=== PATIENT | female | born 1930 | race Caucasian/White ===

== ENCOUNTER → 2016-09-06 | Outpatient (CLI) | payer MEDICARE ==
--- NOTE | 2016-09-06 20:16 | CR ---
EXAM DATE: 09/06/16 PATIENT'S AGE: 85 Patient: PEE HAYES Facility: [place], [place] Site . Site : 1930 Study: XRay Knee Bilateral [id number]/12/2017 9:30:07 AM Ordering Physician: Deion Castro Final Report: HISTORY: Knee pain. Technique: Four views of both knees. Comparison: No prior. Findings: On the right, there is severe narrowing of the lateral joint space compartment noted on the PA notch view. Marginal osteophyte formation about the lateral and patellofemoral compartments compatible with degenerative arthrosis. No acute fracture. No definite suprapatellar joint effusion. No chondrocalcinosis. - On the left, there is mild degenerative arthrosis of the knee. No significant joint space narrowing. No acute fracture or suprapatellar joint effusion. No chondrocalcinosis seen. Impression: 1. On the right, there is degenerative arthrosis of the knee with severe lateral joint space compartment narrowing. 2. On the left, there is mild degenerative arthrosis of the knee without significant joint space narrowing. Dictated by Clay Cintron MD @ Sep 06 2016 10:19AM (Electronic Signature) Report Signed by Proxy. ALTA
== END ==
LOC: MW.CHORTHO 07:55
PROVIDERS: ATTEND Physician Assistant
DX: M25.561 Pain in right knee (principal); M25.562 Pain in left knee; M17.11 Unilateral primary osteoarthritis, right knee; M17.12 Unilateral primary osteoarthritis, left knee; M17.0 Bilateral primary osteoarthritis of knee
CPT/HCPCS: 20610-50; 735642650; 73564-50; G0463; J1040

== ENCOUNTER 2016-12-28 22:08 | Observation (INO) | payer MEDICARE ==
[2016-12-28] MEDS ORDERED: Aspirin 81 MG Tab.Chew PO ONE (22:19)
[2016-12-28] MEDS ORDERED: Nitroglycerin 2% Oint 1 GM UD Packet TOP ONE (22:19)
--- NOTE | 2016-12-28 22:37 | EDM.PDOC ---
ED HPI GENERAL MEDICAL PROBLEM - General Chief Complaint: General Stated Complaint: PT LT ARM HURT Time Seen by Provider: 12/28/16 22:29 - History of Present Illness INITIAL COMMENTS - FREE TEXT/NARRATIVE: HISTORY AND PHYSICAL: History of present illness: Patient's 86-year-old white female presents with concern of left shoulder and neck pain she states she's had this relatively constantly for the last 2-3 weeks she has been seeing a physical therapist for this states it got worse tonight prompting her visit here she is explicitly has concern regarding possible cardiac etiology she denies any associated shortness of breath nausea vomiting palpitations or other concern she has her son here with her who expresses similar concern about the intensity of it tonight. Review of systems: As per history of present illness and below otherwise all systems reviewed and negative. Past medical history: As per history of present illness and as reviewed below otherwise noncontributory. Surgical history: As per history of present illness and as reviewed below otherwise noncontributory. Social history: No reported history of drug or alcohol abuse. Family history: As per history of present illness and as reviewed below otherwise noncontributory. Physical exam: HEENT: Atraumatic, normocephalic, pupils reactive, negative for conjunctival pallor or scleral icterus, mucous membranes moist, throat clear, neck supple, nontender, trachea midline. Lungs: Clear to auscultation, breath sounds equal bilaterally, chest nontender. Heart: S1S2, regular, negative for clicks, rubs, or JVD. Abdomen: Soft, nondistended, nontender. Negative for masses or hepatosplenomegaly. Negative for costovertebral tenderness. Pelvis: Stable nontender. Genitourinary: Deferred. Rectal: Deferred. Extremities: Atraumatic, negative for cords or calf pain. Neurovascular unremarkable. Left shoulder is no localized tenderness no crepitation or somewhat limited range of motion secondary to discomfort neck is without point of vertebral body tenderness is no cervical radicular findings Neuro: Awake, alert, oriented. Cranial nerves II through XII unremarkable. Cerebellum unremarkable. Motor and sensory unremarkable throughout. Exam nonfocal. Diagnostics: CBC CMP troponin PT/INR chest x-ray EKG Therapeutics: IV O2 monitor aspirin nitroglycerin paste Impression: #1 left shoulder/neck pain Definitive disposition and diagnosis as appropriate pending reevaluation and review of above. Left Shoulder Pain Score (Numeric/FACES): 10 - Related Data Allergies Allergy/AdvReac Type Severity Reaction Status Date / Time No Known Allergies Allergy Verified 12/28/16 22:19 Home Meds: Home Meds Aspirin [Ecotrin] 81 mg PO DAILY 01/11/14 [History] Omeprazole [priLOSEC OTC] 20 mg PO DAILY 01/11/14 [History] Calcium Carbonate/Vitamin D3 [Calcium 500 + Vit D 400] 1 each PO DAILY 01/19/14 [History] Cholecalciferol (Vitamin D3) [Vitamin D] 5,000 unit PO DAILY 01/19/14 [History] Cinnamon Bark [Cinnamon] 500 mg PO DAILY 01/19/14 [History] Estradiol [[place]-Dot] 1 each TD ASDIRECTED 01/19/14 [History] Gabapentin [Neurontin] 100 mg PO DAILY 01/19/14 [History] Metoprolol Succinate [Toprol XL] 25 mg PO DAILY 01/19/14 [History] Multivitamin with Minerals [Multivitamins with Minerals] 1 each PO DAILY [History] [place]-3/DHA/Epa/Fish Oil [[place]-3 Fish Oil Softgel] 1 each PO DAILY 01/19/14 [ History] Potassium 595 mg PO DAILY 01/19/14 [History] Social & Family History - Tobacco Use Smoking Status *Q: Never Smoker - Alcohol Use Days Per Week of Alcohol Use: 0 - Recreational Drug Use Recreational Drug Use: No ED ROS GENERAL - Review of Systems Review Of Systems: ROS reveals no pertinent complaints other than HPI. ED EXAM, GENERAL - Physical Exam Exam: See Below (See dictation) Course - Vital Signs Last Recorded V/S: Last Vital Signs Temp 36.6 C 12/28/16 22:09 Pulse 117 H 12/28/16 22:09 Resp 21 H 12/28/16 22:09 BP 202/99 H 12/28/16 22:09 Pulse Ox 97 12/28/16 22:09 - Orders/Labs/Meds Orders: Active Orders 24 hr Category Date Time Status EKG Documentation Completion [RC] STAT Care 12/28/16 22:18 Active Chest 1V Frontal [CR] Stat Exams 12/28/16 22:18 Ordered CBC WITH AUTO DIFF [HEME] Stat Lab 12/28/16 22:23 Received CKMB [CHEM] Stat Lab 12/28/16 22:23 Received COMPREHENSIVE METABOLIC PN,CMP [CHEM] Stat Lab 12/28/16 22:23 Received TROPONIN I [CHEM] Stat Lab 12/28/16 22:23 Received Meds: Medications Discontinued Medications Generic Name Dose Route Start Last Admin Trade Name [place] PRN Reason Stop Dose Admin Aspirin 324 mg 12/28/16 22:19 12/28/16 22:24 Aspirin PO 12/28/16 22:20 324 mg ONETIME ONE Administration Nitroglycerin 0.5 gm 12/28/16 22:19 12/28/16 22:24 Nitro-Bid 2% TOP 12/28/16 22:20 0.5 gm ONETIME ONE Administration Departure - Departure Time of Disposition: 22:36 Disposition: Refer to Observation Condition: Good Clinical Impression: Shoulder pain - Discharge Information Referrals: PCP,None [Primary Care Provider] - - My Orders Last 24 Hours: My Active Orders 12/28/16 22:18 EKG Documentation Completion [RC] STAT Chest 1V Frontal [CR] Stat 12/28/16 22:23 CBC WITH AUTO DIFF [HEME] Stat CKMB [CHEM] Stat COMPREHENSIVE METABOLIC PN,CMP [CHEM] Stat TROPONIN I [CHEM] Stat - Assessment/Plan Last 24 Hours: My Active Orders 12/28/16 22:18 EKG Documentation Completion [RC] STAT Chest 1V Frontal [CR] Stat 12/28/16 22:23 CBC WITH AUTO DIFF [HEME] Stat CKMB [CHEM] Stat COMPREHENSIVE METABOLIC PN,CMP [CHEM] Stat TROPONIN I [CHEM] Stat
[2016-12-28 22:50] LABS: CHLORIDE,CL 105 mmol/L (98-110); SODIUM,NA 142 mmol/L (136-146)
[2016-12-29] MEDS ORDERED: oxyCODONE 5 MG Tab PO PRN (00:26)
[2016-12-29] MEDS ORDERED: Morphine 2 MG/ML Syringe IVPUSH PRN (00:26)
[2016-12-29] MEDS ORDERED: Sodium Chloride 0.9% 2.5 ML Syringe FLUSH PRN (00:26)
[2016-12-29] MEDS ORDERED: Sodium Chloride 0.9% 10 ML Syringe FLUSH PRN (00:26)
[2016-12-29] MEDS: Acetaminophen 325 MG Tab PO PRN ×2 (00:43→04:47)
[2016-12-29 08:44] VITALS: BP 121/70
--- NOTE | 2016-12-29 11:44 | PCM.HP ---
H&P History of Present Illness - General Admit Problem/Dx: Admission Diagnosis/Problem Admission Diagnosis/Problem Shoulder pain - History of Present Illness Initial Comments - Free Text/Narative: 86 yo female who presents with two week history of left shoulder pain. The pain is in the joint and she reports pain with movement of her shoulder. She has been referred to physical therapy. She presented to the ED where initial EKG and troponin were negative. Left Shoulder Pain Score (Numeric/FACES): 5 - Related Data Allergies/Adverse Reactions: Allergies Allergy/AdvReac Type Severity Reaction Status Date / Time No Known Allergies Allergy Verified 12/28/16 22:19 Home Medications: Home Meds Aspirin [Ecotrin] 81 mg PO DAILY 01/11/14 [History] Omeprazole [priLOSEC OTC] 20 mg PO DAILY 01/11/14 [History] Calcium Carbonate/Vitamin D3 [Calcium 500 + Vit D 400] 1 each PO DAILY 01/19/14 [History] Cholecalciferol (Vitamin D3) [Vitamin D3] 5,000 unit PO DAILY 01/19/14 [History] Cinnamon Bark [Cinnamon] 500 mg PO DAILY 01/19/14 [History] Estradiol [Vivelle-Dot] 1 each TD ASDIRECTED 01/19/14 [History] Gabapentin [Neurontin] 100 mg PO DAILY 01/19/14 [History] Metoprolol Succinate [Toprol XL] 25 mg PO DAILY 01/19/14 [History] Multivitamin with Minerals [Multivitamins with Minerals] 1 each PO DAILY [History] [place]-3/DHA/Epa/Fish Oil [[place]-3 Fish Oil Softgel] 1 each PO DAILY 01/19/14 [ History] Potassium 595 mg PO DAILY 01/19/14 [History] Past Medical History HEENT History: Reports: Impaired Vision Other HEENT History: wears glasses Cardiovascular History: Reports: High Cholesterol, Hypertension Gastrointestinal History: Reports: None Genitourinary History: Reports: None Musculoskeletal History: Reports: Arthritis Neurological History: Reports: Neuropathy, Peripheral - Infectious Disease History Infectious Disease History: Reports: Chicken Pox, Mumps - Past Surgical History HEENT Surgical History: Reports: Cataract Surgery Cardiovascular Surgical History: Reports: None GI Surgical History: Reports: Cholecystectomy Female Surgical History: Reports: Hysterectomy Other Musculoskeletal Surgeries/Procedures:: knee surgery right Social & Family History - Family History Family Medical History: Noncontributory - Tobacco Use Smoking Status *Q: Never Smoker Used Tobacco, but Quit: No Second Hand Smoke Exposure: No - Caffeine Use Caffeine Use: Reports: Coffee Caffeine Use Comment: 1cups/day - Alcohol Use Days Per Week of Alcohol Use: 0 - Recreational Drug Use Recreational Drug Use: No H&P Review of Systems - Review of Systems: Review Of Systems: ROS reveals no pertinent complaints other than HPI. Exam - Exam Exam: See Below - Vital Signs Vital Signs: Last Vital Signs Temp 36.4 C 12/29/16 08:00 Pulse 84 12/29/16 08:00 Resp 17 12/29/16 08:00 BP 121/70 12/29/16 08:00 Pulse Ox 92 L 12/29/16 08:00 Weight: 59 kg - Exam General: Alert, Oriented, 4 Lungs: Clear to Auscultation, Normal Respiratory Effort Cardiovascular: Regular Rate, Regular Rhythm GI/Abdominal Exam: Normal Bowel Sounds, Soft, No Distention Extremities: Normal Inspection, Normal Range of Motion, Non-Tender, No Pedal Edema, Normal Capillary Refill. No: Joint Swelling, Arm Pain Skin: Warm, Dry, Intact - Patient Data Lab Results Last 24 hrs: Laboratory Results - last 24 hr 12/29/16 12/29/16 Range/Units 04:08 10:34 Troponin I < 0.10 < 0.10 (0.0-0.29) NG/ML Result Diagrams: 12/28/16 22:23 12/28/16 22:23 *Q Meaningful Use (ADM) - VTE *Q VTE Criteria *Q: - Stroke *Q Stroke Criteria *Q: - AMI *Q AMI Criteria *Q: Problem List Initiated/Reviewed/Updated: Yes Orders Last 24hrs: Active Orders 24 hr Category Date Time Status Ready for Discharge [RC] PER UNIT ROUTINE Care 12/29/16 11:33 Ordered Telemetry Monitoring [Cardiac Monitoring] [RC] . Care 12/29/16 00:24 Active DIRECTED Heart Healthy Diet [DIET] Diet 12/29/16 Breakfast Active Acetaminophen [Tylenol] Med 12/29/16 00:26 Active 650 mg PO Q4H PRN Morphine Med 12/29/16 00:26 Active 2 mg IVPUSH Q3H PRN Sodium Chloride 0.9% [Saline Flush] Med 12/29/16 00:26 Active 10 ml FLUSH ASDIRECTED PRN Sodium Chloride 0.9% [Saline Flush] Med 12/29/16 00:26 Active 2.5 ml FLUSH ASDIRECTED PRN oxyCODONE Med 12/29/16 00:26 Active 5 mg PO Q4H PRN Convert IV to Saline Lock [OM.PC] Routine Oth 12/29/16 00:26 Ordered Code Status [Resuscitation Status] Routine Resus Stat 12/29/16 11:32 Ordered Medication Orders Acetaminophen (Tylenol) 650 mg PO Q4H PRN PRN Reason: Pain (mild 1-3) Last Admin: 12/29/16 04:47 Dose: 650 mg Admin: 12/29/16 00:43 Dose: 650 mg Morphine Sulfate (Morphine) 2 mg IVPUSH Q3H PRN PRN Reason: Pain (severe 7-10) Oxycodone HCl (Oxycodone) 5 mg PO Q4H PRN PRN Reason: Pain (moderate 4-6) Sodium Chloride (Saline Flush) 10 ml FLUSH ASDIRECTED PRN PRN Reason: Keep Vein Open Sodium Chloride (Saline Flush) 2.5 ml FLUSH ASDIRECTED PRN PRN Reason: Keep Vein Open Assessment/Plan Comment:: 86 yo female who presented with shoulder pain. It appears to be musculoskeletal pain likely due to arthritis. ED physician requested observation. Serial troponins were negative. She had no events on telemetry. Patient was discharged home.
--- NOTE | 2016-12-31 16:11 | CR ---
EXAM DATE: 12/28/16 PATIENT'S AGE: 86 Patient: PEE HAYES Facility: [place], [place] Site . Site : 1930 Study: XRay Chest [id number]/2/[id number] 10:40:03 PM Ordering Physician: Doctor Mendoza Final Report: HISTORY: Chest pain. TECHNIQUE: One view of the chest. COMPARISON: 01/19/2014. FINDINGS: Cardiac size and pulmonary vasculature are within normal limits. There is no acute lung infiltrate or pulmonary edema. No pneumothorax or pleural effusion. No acute bony abnormality. IMPRESSION: No acute disease. Dictated by Clay Cintron MD @ 12/28/2016 10:42:36 PM Dictated by: Clay Cintron MD @ 12/28/2016 22:42:43 (Electronic Signature) Report Signed by Proxy. [facility]
== END 2016-12-29 12:00 | disposition home or self-care (01) ==
LOC: MW.ED 22:08 → MW.MS 22:50
PROVIDERS: ADMIT Internal Medicine; ATTEND Internal Medicine
DX: M25.512 Pain in left shoulder (principal); I10 Essential (primary) hypertension; E78.00 Pure hypercholesterolemia, unspecified; M19.90 Unspecified osteoarthritis, unspecified site; G62.9 Polyneuropathy, unspecified; Z79.82 Long term (current) use of aspirin; Z79.899 Other long term (current) drug therapy; Z90.49 Acquired absence of other specified parts of digestive tract; Z90.710 Acquired absence of both cervix and uterus; Z98.890 Other specified postprocedural states
CPT/HCPCS: 36415; 71010; 80053; 82553; 84484; 85025; 93005; 99285; A9270; G0378; 99284